=== PATIENT | male | born 1975 | race African-American/Black ===

== ENCOUNTER 2025-01-20 07:35 | Outpatient (CLI) | payer OTHER, SELFPAY ==
--- NOTE | ~2025-01-20 | US_ITS ---
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 Comparison: None Technique: Roman-scale and color Doppler images were attempted of the lower saphenofemoral junction, common femoral vein,superficial femoral vein, proximal deep femoral vein, proximal deep femoral vein, popliteal vein and posterior tibial veins. Findings: Deep Venous System:Normal flow, augmentation and compressibility. No echogenic thrombus identified. The contralateral saphenofemoral junction appears unremarkable. Superficial Venous SystemNo superficial thrombophlebitis.Varicosities are noted. Soft tissues: Soft tissues are unremarkable. Impression: Negative for DVT. Reviewed, dictated and finalized at location P. TER INSTALLER Impression: Negative for DVT.
== END 2025-01-20 07:36 | disposition home or self-care (01) ==
LOC: ANHIMG 07:42
PROVIDERS: PCP Family Medicine; Visit Provider Family Medicine
DX: I83.91 Asymptomatic varicose veins of right lower extremity (principal); I83.819 Varicose veins of unspecified lower extremity with pain
CPT/HCPCS: 93971